=== PATIENT | female | born 1980 | race Hispanic/Latino ===

== ENCOUNTER 2017-10-12 08:38 | Inpatient (IN) | payer BC ==
[2017-10-08 14:37] VITALS: BMI 24.4
[2017-10-12 09:39] LABS: HEMOGLOBIN 13.4 g/dL (12.0-16.0); MEAN CELL VOLUME 93.9 fl (81.0-99.0); MEAN CORPUSCULAR HEMOGLOBIN 31.8 pg (27.0-31.0); MEAN CORPUSCULAR HGB CONC 33.9 g/dL (33.0-37.0); RBC 4.22 Mil/uL (3.80-5.20); RED CELL DISTRIBUTION WIDTH 12.2 % (11.5-14.5); WHITE BLOOD COUNT 9.5 K/uL (4.8-10.8)
[2017-10-12] MEDS ORDERED: Lactated Ringer's 1,000 ML IV ONE ×3 (11:00→14:30)
[2017-10-12] MEDS ORDERED: ePHEDrine 50 mg/ml Inj ONE (13:13)
[2017-10-12] MEDS ORDERED: Propofol 10 mg/ml Inj (20 ML) ONE (13:13)
[2017-10-12] MEDS ORDERED: Rocuronium 10 mg/ml (5 ml) ONE (13:14)
[2017-10-12] MEDS ORDERED: Succinylcholine 200 mg/10 ml Inj IV ONE (13:14)
[2017-10-12] MEDS ORDERED: Lidocaine 4% (Laryng-O-Jet) Kit MM ONE (13:15)
[2017-10-12] MEDS ORDERED: Bupivacaine 0.5% Inj(30mL) ONE (13:24)
[2017-10-12] MEDS ORDERED: Dexamethasone 4 mg/1 ml ONE (13:44)
[2017-10-12] MEDS ORDERED: Midazolam 2 MG/2 ML VIAL ONE (14:31)
[2017-10-12] MEDS ORDERED: HEMOSTATIC MATRIX 10 ML DIS.NEEDLE TOP ONE ×2 (14:55→15:20)
--- NOTE | 2017-10-12 15:41 | PCM.SURG1 ---
Surgeon's Initial Post Op Note - Surgeon's Notes Surgeon: gordo rodarte md [employer] Executive Director: marshal kinney md Type of Anesthesia: General Endo, Local Pre-Operative Diagnosis: chronic pelvic pain. fibroid uterus. urianry incontinence Operative Findings: extensive adhesions bowel and omental. tight bowel abhesions on left pelvic side wall. endometriosis on left pelvic side wall. hypermobile urethra. normal bladder and ureter anatomy as per cystocopy Post-Operative Diagnosis: chronic pelvic pain. fibroid uterus. urianry incontinence. endometriosis. extensive bowel adhessions Operation Performed: laparoscopic excision of endoemtriosis. laparoscopic extensive bowel adhesions. repair of apiploic fat endometriosis and tight adhesions on colon. midurethral sling. diagnostic cystoscopy Specimen/Specimens Removed: endometriosis Estimated Blood Loss: EBL {In ML}: 10 Blood Products Given: N/A Drains Used: No Drains Post-Op Condition: Good Date of Surgery/Procedure: 10/12/17 Time of Surgery/Procedure: 15:43
[2017-10-12] MEDS ORDERED: Oxycodone/Acetaminophen 5/325 mg Tab PO PRN (15:43)
[2017-10-12] MEDS ORDERED: Lactated Ringer's 1,000 ML IV SCH (15:45)
[2017-10-12] MEDS ORDERED: HYDROmorphone 0.5 mg/0.5 ml ISec ONE (15:53)
[2017-10-12] MEDS: HYDROmorphone 0.5 mg/0.5 ml ISec IVP PRN ×4 (15:55→18:30)
[2017-10-12] MEDS ORDERED: ceFAZolin IV 2 gm in Dextrose 2 GM/50 ML BAG IVPB SCH (17:00)
[2017-10-12] MEDS: Clindamycin 600mg/50ml NS 600 MG/50 ML BAG IVPB SCH (21:12)
[2017-10-12] MEDS: Lactated Ringer's 1,000 ML IV SCH (21:25)
[2017-10-13] MEDS: Lactated Ringer's 1,000 ML IV SCH (02:00)
[2017-10-13] MEDS: Clindamycin 600mg/50ml NS 600 MG/50 ML BAG IVPB SCH ×3 (04:42→19:47)
[2017-10-13 06:32] LABS: BASO # 0.1 K/uL (0.0-0.2); BASO % 0.5 % (0.0-2.0); EOS % 0.2 % (0.0-4.0); HEMOGLOBIN 12.9 g/dL (12.0-16.0); LYMPH # 2.2 K/uL (1.0-4.3); LYMPH % 13.8 % (20.0-40.0); MEAN CELL VOLUME 94.3 fl (81.0-99.0); MEAN CORPUSCULAR HEMOGLOBIN 31.9 pg (27.0-31.0); MEAN CORPUSCULAR HGB CONC 33.8 g/dL (33.0-37.0); MEAN PLATELET VOLUME 8.5 fl (7.2-11.7); MONO # 0.8 K/uL (0.0-0.8); MONO % 5.3 % (0.0-10.0); NEUT # 12.7 K/uL (1.8-7.0); NEUT % 80.2 % (50.0-75.0); RBC 4.05 Mil/uL (3.80-5.20); RED CELL DISTRIBUTION WIDTH 12.2 % (11.5-14.5); WHITE BLOOD COUNT 15.8 K/uL (4.8-10.8)
[2017-10-13 07:50] LABS: BLOOD UREA NITROGEN 10 mg/dl (7-17); CALCIUM 8.5 mg/dL (8.4-10.2); GFR AFRICAN-AMERICAN > 60; GFR NON-AFRICAN AMERICAN > 60
--- NOTE | 2017-10-13 13:20 | CP.PCM.PN ---
Subjective - Date & Time of Evaluation Date of Evaluation: 10/13/17 Time of Evaluation: 13:20 - Subjective Subjective: Patient states she is having a lot of pain. She feels like she has to void and she is passing gas. Tolerating liquid diet well. She has been out of bed once, but says it was very painful. Objective - Vital Signs/Intake and Output Vital Signs (last 24 hours): Temp Pulse Resp BP Pulse Ox 97.4 F L 79 20 102/66 98 10/13/17 07:56 10/13/17 07:56 10/13/17 07:56 10/13/17 07:56 10/13/17 07:56 - Medications Medications: Current Medications Home Med (Norethindrone Ac-Eth Estradiol [Microgestin 21 1-20 Tablet]) 1 tab PO DAILY [facility] Clindamycin Phosphate (Cleocin In Normal Saline) 600 mg in 50 mls @ 50 mls/hr IVPB Q8H [facility] PRN Reason: Protocol Last Admin: 10/13/17 11:34 Dose: 50 mls/hr Ketorolac Tromethamine (Toradol) 30 mg IVP Q6H [facility] Last Admin: 10/13/17 10:28 Dose: 30 mg Metoclopramide HCl (Reglan) 5 mg PO Q6H [facility] Stop: 10/14/17 07:31 Ondansetron HCl (Zofran Inj) 4 mg IVP Q6 PRN PRN Reason: Nausea/Vomiting Oxycodone/Acetaminophen (Percocet 5/325 Mg Tab) 1 tab PO Q4H PRN PRN Reason: Pain, moderate (4-7) Stop: 10/15/17 15:44 - Labs Labs: 10/13/17 06:05 10/13/17 06:05 - GI/Abdominal Exam Additional comments: soft, mildly distended. incisions intact. no erythema - Exam Additional comments: small amount vaginal bleeding (pt due for period as well) Assessment and Plan (1) Chronic pelvic pain in female Assessment & Plan: POD#1 a/p robotic assisted endometriosis excision, sling, lysis adhesions -patient states that pain medication is very strong and requests lower dose -cont OOB -advance diet -d/c IV fluids -awaiting voiding plan d/c home after pain is controlled, patient voids, and tolerates diet -d/w Dr. rodarte, agrees with above Status: Acute (2) Fibroid uterus Status: Acute (3) Incontinence Status: Acute (4) Endometriosis Status: Acute (5) Intestinal adhesions Status: Acute
[2017-10-13] MEDS ORDERED: NORETHINDRONE AC ETH ESTRADIOL PO SCH (13:30)
[2017-10-13] MEDS ORDERED: Morphine 4 MG/ML VIAL IVP PRN (19:15)
[2017-10-14] MEDS: Clindamycin 600mg/50ml NS 600 MG/50 ML BAG IVPB SCH (03:48)
[2017-10-14 07:52] VITALS: BP 110/66; PULSE 56; RESP 20; TEMP 98.2; O2SAT 98
--- NOTE | 2017-10-14 12:06 | CP.PCM.PN ---
Subjective - Date & Time of Evaluation Date of Evaluation: 10/14/17 Time of Evaluation: 12:05 - Subjective Subjective: Patient states pain is getting better. She feels constipated. No new complaints. Objective - Vital Signs/Intake and Output Vital Signs (last 24 hours): Temp Pulse Resp BP Pulse Ox 98.2 F 56 L 20 110/66 98 10/14/17 07:51 10/14/17 07:51 10/14/17 07:51 10/14/17 07:51 10/14/17 07:51 - Medications Medications: Current Medications Home Med (Norethindrone Ac-Eth Estradiol [Microgestin 21 1-20 Tablet]) 1 tab PO DAILY [facility] Clindamycin Phosphate (Cleocin In Normal Saline) 600 mg in 50 mls @ 50 mls/hr IVPB Q8H [facility] PRN Reason: Protocol Last Admin: 10/14/17 03:48 Dose: 50 mls/hr Ketorolac Tromethamine (Toradol) 30 mg IVP Q6H [facility] Last Admin: 10/14/17 09:02 Dose: 30 mg Morphine Sulfate (Morphine) 2 mg IVP Q4 PRN PRN Reason: Pain, moderate (4-7) Last Admin: 10/13/17 19:46 Dose: 2 mg Ondansetron HCl (Zofran Inj) 4 mg IVP Q6 PRN PRN Reason: Nausea/Vomiting Oxycodone/Acetaminophen (Percocet 5/325 Mg Tab) 1 tab PO Q4H PRN PRN Reason: Pain, moderate (4-7) Stop: 10/15/17 15:44 Last Admin: 10/13/17 23:57 Dose: 1 tab - Labs Labs: 10/13/17 06:05 10/13/17 06:05 - GI/Abdominal Exam Additional comments: abd soft, mildly distended, passing gas +BS Assessment and Plan (1) Chronic pelvic pain in female Assessment & Plan: POD#2 d/c home today colace f/u 2 weeks encourage OOB d/w Dr. Summers, agrees with above Status: Acute (2) Fibroid uterus Status: Acute (3) Incontinence Status: Acute (4) Endometriosis Status: Acute (5) Intestinal adhesions Status: Acute
--- NOTE | 2017-10-18 15:37 | PCM.OP ---
Operative Report - Operative Report Date of Surgery/Procedure: 10/12/17 Time of Surgery/Procedure: 15:45 Surgeon: Rosie Summers MD Bus Washer: Fidel Marr MD Anesthesia/Sedation: Gen. with ET tube Pre-Operative Diagnosis: Chronic pelvic pain. Urinary incontinence. Fibroid uterus Post-Operative Diagnosis: Chronic pelvic pain. Urinary incontinence. Fibroid uterus. Endometriosis. Extensive pelvic adhesive disease Indication for Surgery: Worsening chronic pain, worsening stress urinary incontinence, severe dyspareunia Operative Findings: Extensive adhesions bowel and omental throughout the pelvic cavity. Significant and extensive tight bowel adhesions on the left pelvic sidewall. Endometriosis predominantly on the left pelvic sidewall all the way up to the pelvic Breem. Normal bladder and ureters as per cystoscopy at the end of the procedure. Procedure/Operation Description: Laparoscopic excision of endometriosis. Laparoscopic antrolysis and lysis of adhesions. Mid urethral sling. Diagnostic cystoscopy. This is a 37 years old female with chronic pelvic pain, dyspareunia, fibroid uterus, abnormal uterine bleeding and strong possibility of endometriosis. In addition, the patient reports severe stress urinary incontinence with involuntary loss of urine upon sneezing coughing and physical activity. This patient described this pain as debilitating and limiting her daily activity and adversely affecting her quality of life. Following a complete work up at the office which included a U/S, pelvic, vaginal cultures, hematology and chemistry, decision was made to proceed with a robotic assisted excision of endometriosis possible myomectomy and lysis of adhesions and finally mid urethral sling. Long and detailed discussion about utilization of mesh, polypropylene synthetic mesh for the purpose of the mid urethral sling. The risk of mesh erosion pelvic pain bleeding and infection was reviewed in detail, the FDA warning issued against mesh utilization was reviewed in detail, the patient understood all D associated risks with the utilization of synthetic mesh and elected to proceed with this procedure to address worsening stress urinary incontinence. After proper consent was obtained from the patient, she was taken to the operating room, placed in lithotomy position, her legs placed in adjustable stirrups. Careful attention was placed to avoid hyperflexion or hyper-rotation of the lower extremities. Exam under anesthesia revealed a non-mobile bulky uterus, with adnexal fullness bilaterally, and nodularity appreciated the posterior fornix. She was prepped and draped for a robotic excision of endometriosis and myomectomy. Barnes catheter was placed in sterile condition. Weighted speculum was placed in the vagina, the anterior lip of the cervix was grasped with a tenaculum, and the cervix was dilated to allow a V-Care uterine manipulator insertion into the endometrial cavity. While tenting the abdominal wall, a veres needle was inserted through the umbilicus and a pneumoperitoneum was obtained. A 1cm vertical incision was made approx. 3 cm above the umbilicus and a trocar and sleeve were introduced. The patient was placed in Trendelenburg position. A robotic camera was introduced and an initial survey of the pelvic cavity revealed extensive peritoneal adhesions, bowel loops adherent to other viscera as well as uterus and anterior abdominal wall predominantly on the left side. Multiple endometriosis lesions noted on the posterior cul-de-sac wall close proximity to the left uterosacral ligament, deep tissue endometriosis was diagnosed. Surface of the posterior cul-de-sac was distorted evidence of endometriosis with white and brown spots lesions or consistent with endometriosis. Three robotic ports were used for the procedure and were inserted through 5 mm incisions. The first port was inserted on the right side approximately 5 cm cephalad to the superior iliac crest; the second port was placed in a mirror image location on the contralateral side the third port was placed on the patient right side approx. 5 cm superior to the iliac crest. At this time, it was noted that the robotic surgical system and an nonrecoverable error, this system could not be used, could not be docked. Decision was made to proceed with laparoscopic assisted surgery rather than robotic-assisted at this time. The same robotic trocars were utilized for the use of the laparoscopy. Both ureters were visualized with peristalsis prior to the excision and ablation of endometriosis. Meticulous lysis of peritoneal adhesions and ablation of endometriosis was accomplished with the lizbeth and the PK alternative laparoscopic ports. A long and meticulous process of enterolysis was necessary to access the complex endometriomas underneath the bowel adhesions. Following meticulous enterolysis, it was necessary to explore both ureters and their courses in order to avoid structural compromise to ureters. The peritoneum over pelvic sidewall was opened, the ureters were traced from the pelvic brain overlying the bifurcation of the iliac vessels and traced down towards the lower uterine segment bilaterally. The ureters were retracted laterally in order to safely lysed off adjacent bowel loops, fallopian tubes and ovaries as well as the multiple endometriomas. In summary, enterolysis as well as, ovariolysis as well as salpingo-lysis was completed to restore somewhat of normal anatomy. Most of the adhesive disease on the patients left side. Ablation of superficial endometriosis lesion was completed with monopolar lizbeth careful attention was paid to avoid close proximity to ureters and great vessels. Of note, height and significant bowel adhesions was noted with the colon tightly adherent to the left pelvic sidewall, the colon was adherent under pressure with tight adhesions, adhesions involved the pelvic sidewall as well as D left aspect of the posterior wall of the uterus. Meticulous and careful dissection was carried out to release the bowel loop from the posterior aspect of the uterus as well as the left pelvic sidewall. At some point the epiploic fat along the bowel loop had to be excised in order to release the tight adhesions. Due to the extensive defect along the epiploic fat and serosal of the bowel, 3-0 Vicryl suture was utilized in an interrupted fashion to reapproximate the serosal defect in the epiploic fat incision. Excellent hemostasis was noted. At this time, attention was then turned to the patients vagina for the placement of the medial urethral sling. Selection of the sling utilized for this procedure was to [employer] solyx single incision sling. The anterior vaginal wall over the Midurethral area was grasped with a pair of Allis clamps and tenting the vaginal wall from the underlying urethra. Local anesthetic solution of 0.25% Marcaine with epinephrine diluted 1:1 was used to infiltrate the periurethral space. A total of 20 cc was utilized. Using a scalpel, a Midurethral vertical incision about 1 cm was made through the vaginal epithelium and periurethral fascia. Careful lateral sharp dissection using Metzenbaum scissors towards the inferior pubic ramus to eventually allow the sling graft to lie flat against the urethra. Next, the sling mesh was loaded onto the needle tip. The needle tip was inserted through one side of the incision towards the medial edge of the obturator foramen approximately 45 degrees of the horizontal plane. Using an arching motion, the needle tip was advanced through pushing the obturator internus muscle. The needle was released from the graft and loaded on the other side of the sling ready for deployment to the contralateral side. Ensuring the sling is flat on the urethra and not twisted, the needle was advanced in an arching motion towards the obturator internus muscle on the opposite site. Attention was readdressed to allow a flat placement with tension- free sling on the midurethra region. Following saline irrigation and good hemostasis was noted, the vaginal mucosa was closed with 2- 0 Vicryl in a locking fashion. At this time, the Barnes catheter was removed and a diagnostic cystoscopy was performed. The bladder was distended with about 300 cc of fluid. Both ureteral orifices were noted to be fluxing urine normally. The trigone was normal. There were no noted abnormalities with any evidence of any compromise of the lower urinary tract with mesh material, sutures or instruments. The patient emerged from general anesthesia without any difficulty. The patient was taken to the recovery room in stable condition. Prior to incision patient received prophylactic antibiotics, prior to closure sponge lap and needle counts are correct x2.The abdomen was throughout irrigated and cleared of clots and debris. Flow-seal and inter-seed to prevent further adhesions placed over the excision / ablation beds. All instruments were removed under direct visualization; Pneumoperitoneum was reduced. The camera port was closed at a fascial layer with a 2-0 vicryl. All skin incisions were closed with a 4-0 monocryl in a subcuticular fashion. The Vcare was removed and Barnes remained to be removed the next morning. Prior to incision, patient received prophylactic antibiotics (Ancef), prior to closure, sponge lap and needle count were correct times two. Patient was taken to recovery room under stable condition. Estimated Blood Loss: 10 Blood Replaced: None Sponge/Instrument Count: Count correct 2 Drains: None Complications: None Specimen: Endometriosis Discharge & Condition: Patient discharged home on day 1 in stable conditions
== END 2017-10-14 13:44 | disposition home or self-care (01) | DRG 743 ==
LOC: H.OPSURG 08:38 → H.MEDSURG1 15:43
PROVIDERS: ADMIT Obstetrics & Gynecology; ATTEND Obstetrics & Gynecology
PROC: 0DNW4ZZ Release Peritoneum, Percutaneous Endoscopic Approach (ICD-10-PCS; 2017-10-12)
PROC: 0DNU4ZZ Release Omentum, Percutaneous Endoscopic Approach (ICD-10-PCS; 2017-10-12)
PROC: 0TSD4ZZ Reposition Urethra, Percutaneous Endoscopic Approach (ICD-10-PCS; 2017-10-12)
PROC: 8E0W4CZ Robotic Assisted Procedure of Trunk Region, Percutaneous Endoscopic Approach (ICD-10-PCS; 2017-10-12)
PROC: 0U5B4ZZ Destruction of Endometrium, Percutaneous Endoscopic Approach (ICD-10-PCS; principal; 2017-10-12 10:15)
PROC: 0U594ZZ Destruction of Uterus, Percutaneous Endoscopic Approach (ICD-10-PCS; 2017-10-12 10:15)
DX: D25.9 Leiomyoma of uterus, unspecified (principal); G89.29 Other chronic pain; N73.6 Female pelvic peritoneal adhesions (postinfective); K59.00 Constipation, unspecified; N39.3 Stress incontinence (female) (male); N80.3 Endometriosis of pelvic peritoneum; N94.10 Unspecified dyspareunia